=== PATIENT | male | born 1950 | race Caucasian/White ===

== ENCOUNTER → 2017-12-26 17:54 | Emergency (ER) | payer OTHER ==
[~2017-12-26 17:54] MED LIST: Cephalexin CAP* 500 MG PO ONE
--- NOTE | 2017-12-26 19:41 | UC ---
Skin Complaint HPI - HPI Summary HPI Summary: The pt is a 67 y/o male presenting to [facility] c/o prostate swelling and color change since 1800 hrs today. He had a prostate surgery at [facility] with Dr. Cholo MD this week and got discharged. He notes increasing scrotal blackness and scrotal pain but denies bruising, abdominal pain, fever, N/V/D, difficulty ambulating and dysuria. The scrotal pain is rated 4/10 in severity. He has a Del Angel catheter in place. The pt denies any physical exertion today. His local urologist is Dr. Raj MD. - History of Current Complaint Chief Complaint: EDGeneral Time Seen by Provider: 12/26/17 19:08 Stated Complaint: GROIN PAIN Hx Obtained From: Patient, Family/Croze Cutter Helper Onset/Duration: Sudden Onset, Lasting Hours, Still Present Current Severity: Mild Pain Intensity: 4 Pain Scale Used: 0-10 Numeric Location: Other - Scrotum Character: Swelling, Painful Associated Signs & Symptoms: Negative: Nausea, Vomiting, Fever, Abdominal Pain, Bruising Related History: Other: - Recent prostate surgery - Allergy/Home Medications Allergies/Adverse Reactions: Allergies Allergy/AdvReac Type Severity Reaction Status Date / Time Sulfa (Sulfonamide Allergy Hives Verified 12/26/17 18:09 Antibiotics) Review of Systems Constitutional: Negative - Fever Skin: Negative - Bruising, Other - Positive: Scrotal swelling and blackness Gastrointestinal: Negative - Abd pain Motor: Negative - Difficulty ambulating All Other Systems Reviewed And Are Negative: Yes PMH/Surg Hx/FS Hx/Imm Hx - Surgical History Surgical History: Yes Surgery Procedure, Year, and Place: MANDIBULAR CYST - Social History Alcohol Use: None Substance Use Type: None Smoking Status (MU): Never Smoked Tobacco Physical Exam Vital Signs: Initial Vital Signs Temp 98.2 F 12/26/17 18:04 Pulse 108 12/26/17 18:04 Resp 18 12/26/17 18:04 BP 104/62 12/26/17 18:04 Pulse Ox 100 12/26/17 18:04 Discharge - Discharge Plan Referrals: No Primary Care Phys,NOPCP [Primary Care Provider] - - Attestation Statements Document Initiated by Scribe: Yes Documenting Scribe: Aminata Phan Provider For Whom Scribe is Documenting (Include Credential): Dr. Shira Chun MD Scribe Attestation: Aminata Ortiz , scribed for Dr. Shira Chun MD on 12/26/17 at 2016.
[2017-12-26 19:53] LABS: ABS Basophils 0 10^3/ul (0-0.2); ABS Eosinophils 0 10^3/ul (0-0.6); ABS Lymphocytes 1.3 10^3/ul (1.0-4.8); ABS Monocytes 1.4 10^3/ul (0-0.8); ABS Neutrophils 13.4 10^3/ul (1.5-7.7); ABS Nucleated RBC 0 10^3/ul; Eosinophil % 0.1 % (0-6); Hematocrit 36 % (42-52); Lymphocyte % 8.3 % (25-47); Mean Corpuscular HGB Conc 34 g/dl (31-36); Mean Corpuscular Hemoglobin 30 pg (27-31); Mean Corpuscular Volume 88 fL (80-94); Mean Platelet Volume 7.7 um3 (7.4-10.4); Nucleated Red Blood Cells % 0; Platelet Count 215 10^3/ul (150-450); Red Blood Count 4.06 10^6/ul (4.00-5.40); Red Cell Distribution Width 14 % (10.5-15); White Blood Count 16.2 10^3/ul (3.5-10.8)
[2017-12-26 20:04] LABS: EGFR Non-African American 79.3 (>60)
--- NOTE | 2017-12-26 20:08 | ED ---
Skin Complaint - HPI Summary HPI Summary: The pt is a 67 y/o male presenting to [facility] c/o prostate swelling and color change since 1800 hrs today. He had a prostate surgery at [facility] with Dr. Cholo MD this week and got discharged. He notes increasing scrotal blackness and scrotal pain but denies bruising, abdominal pain, fever, N/V/D, difficulty ambulating and dysuria. The scrotal pain is rated 4/10 in severity. He has a Del Angel catheter in place. The pt denies any physical exertion today. His local urologist is Dr. Aleks Paulson MD. - History of Current Complaint Chief Complaint: EDGeneral Time Seen by Provider: 12/26/17 19:08 Stated Complaint: GROIN PAIN Hx Obtained From: Patient, Family/Duck Operator Onset/Duration: Started Hours Ago, Still Present Skin Exposure Onset/Duration: Hours Ago Timing: Constant Onset Severity: Mild Current Severity: Mild Pain Intensity: 4 Pain Scale Used: 0-10 Numeric Skin Location: Other: - Scrotum Character: Swelling, Painful Associated Signs & Symptoms: Negative - N/V/D, fever, dysuria bruising Related History: Other: - Recent prostate surgery - Allergy/Home Medications Allergies/Adverse Reactions: Allergies Allergy/AdvReac Type Severity Reaction Status Date / Time Sulfa (Sulfonamide Allergy Hives Verified 12/26/17 18:09 Antibiotics) PMH/Surg Hx/FS Hx/Imm Hx Previously Healthy: No Endocrine/Hematology History: Denies: Hx Diabetes Cardiovascular History: Reports: Hx Hypertension History: Denies: Hx Renal Disease - Cancer History Cancer Type, Location and Year: PROSTATE CA - Surgical History Surgery Procedure, Year, and Place: MANDIBULAR CYST. Prostate surgery-November 2017 Infectious Disease History: No Infectious Disease History: Denies: Traveled Outside the [place] in Last 30 Days - Family History Known Family History: Positive: Hypertension - Social History Occupation: Retired Lives: With Family Alcohol Use: None Substance Use Type: Reports: None Smoking Status (MU): Never Smoked Tobacco Review of Systems Negative: Fever Negative: Abdominal Pain, Vomiting, Diarrhea, Nausea Negative: dysuria Skin: Other - Positive: Scrotal swelling and blackness, scrotal pain Negative: Bruising All Other Systems Reviewed And Are Negative: Yes Physical Exam - Summary Physical Exam Summary: GENERAL: Patient is a well developed and nourished M who is lying comfortable in the stretcher. Patient is not in any acute respiratory distress. HEAD AND FACE: Normocephalic EYES: PERRLA, EOMI x 2. EARS: Hearing grossly intact. MOUTH: Oropharynx within normal limits. NECK: Supple, trachea is midline, no adenopathy, no JVD, no carotid bruit. CHEST: Symmetric, no tenderness at palpation LUNGS: Clear to auscultation bilaterally. No wheezing or crackles. CVS: Regular rate and rhythm, S1 and S2 present, no murmurs or gallops appreciated. ABDOMEN: Abdominal surgical site is clean and intact. Abd soft, non-tender. Bowel sounds are normal. No abdominal abnormal pulsations. Ecchymosis and swelling to the scrotal area with no tenderness to palpation of the testicles EXTREMITIES: Full ROM in all major joints, no edema, no cyanosis or clubbing. NEURO: Alert and oriented x 3. No acute neurological deficits. Speech is normal and follows commands. SKIN: Swollen scrotum with ecchymosis, The rest of the skin is dry and warm Triage Information Reviewed: Yes Vital Signs On Initial Exam: Initial Vitals Temp Pulse Resp BP Pulse Ox 98.2 F 108 18 104/62 100 12/26/17 18:04 12/26/17 18:04 12/26/17 18:04 12/26/17 18:04 12/26/17 18:04 Vital Signs Reviewed: Yes Diagnostics - Vital Signs Vital Signs Temp Pulse Resp BP Pulse Ox 12/26/17 18:04 98.2 F 108 18 104/62 100 - Laboratory Lab Results: Lab Results 12/26/17 12/26/17 Range/Units 19:41 19:41 WBC 16.2 H (3.5-10.8) 10^3/ul RBC 4.06 (4.00-5.40) 10^6/ul Hgb 12.0 L (14.0-18.0) g/dl Hct 36 L (42-52) % MCV 88 (80-94) fL MCH 30 (27-31) pg MCHC 34 (31-36) g/dl RDW 14 (10.5-15) % Plt Count 215 (150-450) 10^3/ul MPV 7.7 (7.4-10.4) um3 Neut % (Auto) 82.7 (38-83) % Lymph % (Auto) 8.3 L (25-47) % [place] % (Auto) 8.6 H (0-7) % Eos % (Auto) 0.1 (0-6) % Baso % (Auto) 0.3 (0-2) % Absolute Neuts (auto) 13.4 H (1.5-7.7) 10^3/ul Absolute Lymphs (auto) 1.3 (1.0-4.8) 10^3/ul Absolute Monos (auto) 1.4 H (0-0.8) 10^3/ul Absolute Eos (auto) 0 (0-0.6) 10^3/ul Absolute Basos (auto) 0 (0-0.2) 10^3/ul Absolute Nucleated RBC 0 10^3/ul Nucleated RBC % 0 Sodium 136 (135-145) mmol/L Potassium 4.9 (3.5-5.0) mmol/L Chloride 106 (101-111) mmol/L Carbon Dioxide 27 (22-32) mmol/L Anion Gap 3 (2-11) mmol/L BUN 21 (6-24) mg/dL Creatinine 0.95 (0.67-1.17) mg/dL Est GFR ( Amer) 96.0 (>60) Est GFR (Non-Af Amer) 79.3 (>60) BUN/Creatinine Ratio 22.1 H (8-20) Glucose 119 H (70-100) mg/dL Calcium 8.9 (8.6-10.3) mg/dL Total Bilirubin 0.70 (0.2-1.0) mg/dL AST 22 (13-39) U/L ALT 22 (7-52) U/L Alkaline Phosphatase 60 (34-104) U/L Total Protein 6.0 L (6.4-8.9) g/dL Albumin 3.7 (3.2-5.2) g/dL Globulin 2.3 (2-4) g/dL Albumin/Globulin Ratio 1.6 (1-3) Result Diagrams: 12/26/17 19:41 12/26/17 19:41 Lab Statement: Any lab studies that have been ordered have been reviewed, and results considered in the medical decision making process. - Ultrasound No standard instances Ultrasound Interpretation Completed By: Radiologist - Testicular US IMPRESSION : 1. Right intrascrotal hematoma. 2. Right rete testis and associated small spermatocele. 3. Left varicocele. The ED physician reviewed this radiology report. Re-Evaluation - Re-Evaluation First Eval Re-Evaluation Time: 21:02 Change: Unchanged - Discussed the US results and dispo plan with the pt. Course/Dx - Course Course Of Treatment: A 67 year-old M presents to the ED with a CC of prostate swelling and color change since 1800 hrs today. He had a prostate surgery at [facility] and got discharged. He notes increasing scrotal blackness and scrotal pain but denies bruising, abdominal pain, fever, N/V/D, difficulty ambulating and dysuria. A physical exam revealed a swollen scrotum with ecchymosis and a clean and intact abdominal surgical site. A testicular US reveals R intrastromal hematoma, R rete testis and associated small spermatocele and L varicocele. In the ED course, pt was given Cephalexin 500mg PO which improved the symptoms. I discussed the care of the pt with Dr. Albert MD at [facility] who said that scrotal hematoma is a normal side effect of prostate surgery. The patient will be discharged with a final Dx of scrotal hematoma, UTI and L varicocele. I discussed results with patient and he agrees with this plan. He is hemodynamically stable upon discharge. Strict return precautions given and he will otherwise follow up with his urologist. Allergies noted. - Diagnoses Provider Diagnoses: Scrotal hematoma, Catheter-associated urinary tract infection, Left varicocele - Physician Notifications Discussed Care Of Patient With: Dr. Miguel Rogers- [facility] - Urologist Time Discussed With Above Provider: 20:44 Instructed by Provider To: Other - Dr. Rogers notes that scrotal hematoma is a normal side effect of prostate surgery. The pt can be discharged. Discharge - Sign-Out/Discharge Documenting (check all that apply): Patient Departure - DC - Discharge Plan Condition: Stable Disposition: HOME Prescriptions: Cephalexin CAP* [Keflex CAP*] 500 mg PO BID #10 cap Patient Education Materials: Hematoma (ED), Catheter-associated Urinary Tract Infection (ED) Referrals: Aleks Rivera MD [Medical Doctor] - Additional Instructions: Follow up with the urologist as soon as possible. Return to ED for any new or worsening symptoms - Billing Disposition and Condition Condition: STABLE Disposition: Home - Attestation Statements Document Initiated by Scribe: Yes Documenting Scribe: Aminata Phan Provider For Whom Alexey is Documenting (Include Credential): Dr. Shira Chun MD Scribe Attestation: Aminata Ortiz , scribed for Dr. Shira Chun MD on 12/27/17 at 0507. Scribe Documentation Reviewed: Yes Provider Attestation: The documentation as recorded by the scribeAminata accurately reflects the service I personally performed and the decisions made by me, Dr. Shira Chun MD
--- NOTE | 2017-12-26 20:15 | RAD ---
EXAM: US Scrotum. EXAM DATE/TIME: 12/26/2017 7:56 PM CLINICAL HISTORY: 67 years old, male; Pain; Groin pain; Prior surgery; Surgery date: Post-operative (0-2 days); Surgery type: Patient had prostate surgery today. On the way home from surgery his scrotum swelled and turned black. ; Additional info: Scrotal pain TECHNIQUE: Real-time ultrasound of the scrotum with color Doppler and image documentation. COMPARISON: No relevant prior studies available. FINDINGS: Right testicle: Measures 4.9 x 2.9 x 1.9 cm (14 cc). Normal echogenicity. Prominent rete testis with a small associated cyst measuring 0.6 x 0.5 x 0.4 cm. No masses. Normal arterial and venous waveforms. Right epididymis: Normal echogenicity measuring up to 1.2 cm. No hydrocele. No varicocele. Left testicle: Measures 4.3 x 1.9 x 1.7 cm (7.3 cc). Normal echogenicity. No masses. Normal arterial and venous waveforms. Left epididymis: Normal echogenicity measuring up to 1.1 cm. No hydrocele. Varicocele present measuring up to 0.4 cm. Scrotum: No skin thickening. Heterogeneous nonvascular collection within the mid right scrotum. IMPRESSION: 1. Right intrascrotal hematoma. 2. Right rete testis and associated small spermatocele. 3. Left varicocele. To contact [facility] with a general question: Operations Center - [phone] For direct physician to physician contact: Physician Hotline - [phone] [facility] ([facility] Facility ID #[id number])
[2017-12-26 20:20] LABS: Urine Appearance Cloudy; Urine Blood 3+ (Negative); Urine Color Yellow; Urine Ketones Negative (Negative); Urine Protein Negative (Negative); Urine Red Blood Cell 3+(>10/hpf) (Absent); Urine Specific Gravity 1.009 (1.010-1.030); Urine Urobilinogen Negative (Negative); Urine White Blood Cell 2+(11-20/hpf) (Absent)
[2017-12-26 21:12] LABS: INR 1.05 (0.77-1.02)
[2017-12-26 21:44] VITALS: BP 136/74
== END | disposition home or self-care (01) ==
LOC: ED 17:54
DX: S30.22XA Contusion of scrotum and testes, initial encounter (principal); Y83.9 Surgical procedure, unspecified as the cause of abnormal reaction of the patient, or of later complication, without mention of misadventure at the time of the procedure; Y92.9 Unspecified place or not applicable; I86.1 Scrotal varices; T83.511A Infection and inflammatory reaction due to indwelling urethral catheter, initial encounter; N39.0 Urinary tract infection, site not specified; Z88.2 Allergy status to sulfonamides
CPT/HCPCS: 36415; 76870; 80053; 81003; 81015; 85025; 85610; 85730; 87086; 99282; A9270-GY